=== PATIENT | female | born 1965 ===

== ENCOUNTER 2023-01-16 04:13 | Day surgery (SDC) | payer OTHER ==
[2023-01-15 09:55] VITALS: BMI 42.5
[2023-01-16] MEDS ORDERED: PROPOFOL 20 ML ONE (16:33)
[2023-01-16] MEDS ORDERED: MIDAZOLAM HCL 2 MG/2 ML SINGLE DOSE VIAL ONE (16:33)
[2023-01-16] MEDS ORDERED: ONDANSETRON 4 MG/2 ML VIAL IVPUSH PRN (16:44)
[2023-01-16] MEDS ORDERED: oxyCODONE HCL 5 MG TABLET PO PRN (16:44)
[2023-01-16] MEDS ORDERED: LACTATED RINGERS SOLUTION 1,000 ML IV SCH (16:45)
[2023-01-16] MEDS ORDERED: ceFAZolin SODIUM 1 GM VIAL IVPB ONE (16:55)
[2023-01-16] MEDS ORDERED: LIDOCAINE 1%/EPI 1:100000 (50 ML MULTI DOSE VIAL) INF ONE (17:21)
[2023-01-16] MEDS ORDERED: BUPIVACAINE HCL/PF 0.5% (5MG/ML) 10 ML VIAL IJ ONE (17:22)
[2023-01-16 19:32] VITALS: BP 108/49; PULSE 77; RESP 20; TEMP 97.6
== END 2023-01-16 19:15 | disposition home or self-care (01) ==
LOC: JASU-SURG 04:13
PROVIDERS: ATTEND Surgery Surgical Oncology
PROC: 0HBU0ZX Excision of Left Breast, Open Approach, Diagnostic (ICD-10-PCS; principal; 2023-01-16 16:00)
DX: D24.2 Benign neoplasm of left breast (principal)
CPT/HCPCS: 82962; 88307-TC; 88342-TC; 94760